=== PATIENT | male | born 1960 | race Caucasian/White ===

== ENCOUNTER 2024-11-10 15:39 | Inpatient (IN) | payer OTHER, SELFPAY ==
[2024-11-10 15:55] VITALS: BP 131/84; PULSE 120; RESP 24; TEMP 37.2; O2SAT 87
[2024-11-10 16:00] VITALS: BMI 35.2
--- NOTE | 2024-11-10 16:00 | XR_ITS ---
Examination: PA lateral chest 2 views Technique: Upright PA lateral chest 2 views Exam date and time: November 10, 2024 1638 hrs. Comparison September 02, 2023 Indications: Shortness of breath today. Findings: Diffuse significant right lung pneumonia Mild left base pneumonia Normal heart size Significant hyperexpansion Impression: Diffuse significant right lung pneumonia Mild left base pneumonia
--- NOTE | 2024-11-10 16:01 | EDRME_ITS ---
Rapid Medical Screening Exam [facility], [facility] Arrival date/time: 11/10/24 15:39 64-year-old male with a history of COPD presents to the emergency room with a chief complaint of difficulty breathing x 2 weeks that is progressively gotten worse the last 2 days. Patient states he also has a history of needing blood transfusions. I have greeted and performed a focused initial assessment of this patient. A comprehensive ED assessment and evaluation of the patient, analysis of all test results, and completion of the medical decision making process will be conducted by additional ED providers. Chief Complaint: Shortness of Breath/Dyspnea Vital signs: Vital Signs Temperature 98.9 F 11/10/24 15:55 Pulse Rate 120 H 11/10/24 15:55 Respiratory Rate 24 H 11/10/24 15:55 Blood Pressure 131/84 H 11/10/24 15:55 Pulse Oximetry (%) 87 L 11/10/24 15:55 Oxygen Delivery Method Room Air 11/10/24 15:55 Vital signs reviewed by provider: Yes
--- NOTE | 2024-11-10 16:47 | PD.EDADULT ---
ED General RME/HPI General Chief complaint: Shortness of Breath/Dyspnea Stated complaint: SHORTNESS OF BREATH Time Seen by Provider: 11/10/24 16:39 Arrival date/time: 11/10/24 15:39 CC: Cough and shortness of breath HPI ongoing for the past 2 weeks but worse in the last 2 days. Determined to have a low-grade fever of 100.7 today. Patient is awake alert oriented denies any chest pain. RME / HPI RME / HPI narrative: 11/10/24 15:39 64-year-old male with a history of COPD presents to the emergency room with a chief complaint of difficulty breathing x 2 weeks that is progressively gotten worse the last 2 days. Patient states he also has a history of needing blood transfusions. I have greeted and performed a focused initial assessment of this patient. A comprehensive ED assessment and evaluation of the patient, analysis of all test results, and completion of the medical decision making process will be conducted by additional ED providers. Related Data Allergies Allergy/AdvReac Type Severity Reaction Status Date / Time No Known Allergies Allergy Verified 11/10/24 15:41 Review of Systems Review of Systems Narrative Review of Systems: GEN: No fever, no chills, no weight loss EYES: No discharge, no visual changes, no pain HEENT: No ear pain, no congestion, no sore throat PULM: +shortness of breath, + cough, no congestion CV: No chest pain, no dyspnea on exertion, no palpitations GI: No nausea, no vomiting, no diarrhea, no pain, no constipation : No frequency, no urgency, no dysuria MUSC/SKEL: No joint pain, no back pain SKIN: No rash PSYCH: No hallucinations, no depression HEME/LYMPH: No easy bleeding or bruising tendencies NEURO: No weakness, no headache ED Exam Narrative Physical exam: [General: Thin borderline emaciated in mild discomfort but not in any acute distress Head normocephalic HEENT: Within acceptable limits Neck is supple nontender Chest equal chest rise nontender to palpation Respiratory: Tachypneic audible expiratory crackles. Mild anterior retractions. CV: Rate rhythm is regular, tachycardic, no murmurs rubs or clicks Abdomen is flat, soft nontender no masses positive bowel sounds all 4 quadrants Back: No CVA tenderness no spinous process tenderness from cervical spine thoracic and lumbar spine Skin: Intact no petechiae rash induration ulceration or crepitus Extremities: Moving all extremity against resistance cap refill less than 2 seconds neurosensory intact Neuro: Awake alert oriented x3 Glascow coma 15 no focal deficits] Course Quality Measures none Orders Category Date Time Status Bedside COVID-19 Antigen Test NOW Care 11/10/24 17:29 Active Bedside Influenza A&B Antigen Test NOW Care 11/10/24 17:29 Completed Door Patcher STAT Care 11/10/24 18:40 Active Continuous Pulse Oximetry STAT Care 11/10/24 18:40 Active EKG (ED ONLY) *Do not use* NOW Care 11/10/24 16:00 Completed Insert IV NOW Care 11/10/24 16:31 Active NPO STAT Care 11/10/24 18:40 Active Strict Intake and Output Routine Care 11/10/24 18:40 Ordered EKG (ED Only) Stat Exams 11/10/24 16:00 Ordered XR chest 2V Stat Exams 11/10/24 16:00 Completed B-Type Natriuretic Peptide Stat Lab 11/10/24 16:26 Completed Blood Culture (Lab) Stat Lab 11/10/24 17:25 Received CBC Stat Lab 11/10/24 16:26 Completed Comprehensive Metabolic Panel Stat Lab 11/10/24 16:26 Completed Drug Screen,Urine Stat Lab 11/10/24 18:30 Received Lactic Acid [Lactate (Lactic Acid)] Stat Lab 11/10/24 17:25 Results Lipase Stat Lab 11/10/24 16:26 Received Magnesium Stat Lab 11/10/24 16:26 Completed Partial Thromboplastin Time Stat Lab 11/10/24 16:26 Completed Phosphorous Stat Lab 11/10/24 16:26 Received Procalcitonin Stat Lab 11/10/24 17:25 Completed Prothrombin Time with INR Stat Lab 11/10/24 16:26 Completed Troponin I Stat Lab 11/10/24 16:26 Completed Type and Screen Stat Lab 11/10/24 16:26 Completed Urinalysis Stat Lab 11/10/24 18:30 Received Urine Culture Stat Lab 11/10/24 18:30 Received ALBUTEROL RT 0.5ml [Proventil Rt 0.5ml] Med 11/10/24 16:45 Discontinued 10 mg INH X1 ONE Sodium Chloride 0.9% 1000 ml [Ns] 1,000 ml Med 11/10/24 18:20 Active IV 999 mls/hr Sodium Chloride Rt Opal 0.9% [NS Rt Opal 0.9%] Med 11/10/24 16:45 Active 3 ml INH PRN PRN cefTRIAXone/D5w 1gm IV premix [Rocephin/D5w 1gm IV Med 11/10/24 16:46 Discontinued premix] 50 ml IV X1 Oxygen Delivery NOW RT 11/10/24 18:40 Active Vital Signs Vital signs: Vital Signs Temperature 98.9 F 11/10/24 15:55 Pulse Rate 120 H 11/10/24 15:55 Respiratory Rate 24 H 11/10/24 15:55 Blood Pressure 131/84 H 11/10/24 15:55 Pulse Oximetry (%) 87 L 11/10/24 15:55 Oxygen Delivery Method Room Air 11/10/24 15:55 [facility] Patient data External records reviewed:: [facility] previous records Clinical information provided by:: patient Social determinants that could affect healthcare access:: none Patient has the following chronic illnesses:: COPD How is presenting disease/condition affected by chronic disease/condition?: exacerbated by Evaluation data The following diagnostics were reviewed and interpreted by me:: lab results and radiology exam(s) Lab and/or radiology exams considered but not ordered:: EKG performed at 1607 shows a ventricular rate of 120 MO interval 123 QRS of 8 5 QTc of 375 is sinus tachycardia. CBC shows a leukocytosis with a stable anemia no thrombocytopenia CMP shows a sodium 129 potassium of 4.0 chloride of 97 CO2 of 20.5 BUN of 24 creatinine 1.7 glucose 132 Lactic of 2.2 with a Pro-Carlos of 1.72. X-rays interpreted by me read by radiology shows pneumonia Influenza A positive Interpretation Summary: Patient is influenza A positive however the patient does have a leukocytosis with a positive Pro-Carlos and positive lactic. I am concerned that the patient has an overlying bacterial normal pneumonia in addition to the influenza. Patient's oxygen saturations have dipped to 82 to 85% on room air the patient does use oxygen at home as needed and steady not been using it in any additionally. This time feel the patient needs to be admitted for further medical management Patient's case discussed with resident for Dr. Borja who agrees to accept the patient for admission. Medications Medications considered but not ordered:: None Medication administrations:: Medication Administration History Sodium Chloride (Ns) 1,000 mls @ 999 mls/hr IV .Q1H1M ONE Stop: 11/10/24 19:20 Sodium Chloride (Sodium Chloride Rt Opal 0.9% 3 Ml Nebu) 3 ml INH PRN PRN PRN Reason: SOLN Stop: 12/10/24 16:44 Last Admin: 11/10/24 17:02 Dose: 3 ml Documented By: ASTER Discontinued Medications Albuterol (Albuterol Rt 2.5 Mg/0.5 Ml Nebu) 10 mg INH X1 ONE Stop: 11/10/24 16:46 Last Admin: 11/10/24 17:02 Dose: 10 mg Documented By: ASTER Ceftriaxone Sodium/Dextrose (Rocephin/D5w 1gm Iv Premix) 50 mls @ 100 mls/hr IV X1 ONE Stop: 11/10/24 17:15 Last Infusion: 11/10/24 19:02 Dose: Infused Documented By: Admin: 11/10/24 17:15 Dose: 100 mls/hr Documented By: JANI None Consultations Consultation(s) initiated? (list below): No Diagnosis Differential Diagnosis ED Complaint MDM: Influenza have bacteria sepsis Most likely diagnosis given after review of the tests above:: Influenza pneumonia sepsis shortness of breath hypoxemia Admission Indicated Admission indicated?: indicated Explain why admission is indicated or not indicated:: Further medical management Admission Request Was there a request for admission?: No Disposition Plan Disposition Plan: Admit Medical Decision Making Differential Diagnosis Differential Diagnosis: Influenza have bacteria sepsis Lab Data 11/10/24 16:26 11/10/24 16:26 Labs: Lab Results 11/10/24 11/10/24 Range/Units 16:26 17:25 WBC 16.9 H (3.8-10.6) Thou/mm3 RBC 4.46 L (4.50-5.90) Miln/mm3 Hgb 8.3 L (13.5-16.0) g/dL Hct 28.8 L (41.0-53.0) % MCV 65 L (80-100) fL MCH 18.6 L (25.0-35.0) pg MCHC 28.8 L (31.0-37.0) g/dl RDW Std Deviation 39.0 (35.1-43.9) fL Plt Count 230 (140-440) Thou/mm3 Neut % (Auto) 86 H (37-80) % Lymph % (Auto) 5 L (10-50) % [place] % (Auto) 8 (0-12) % Eos % (Auto) 0 (0-10) % Baso % (Auto) 0 (0-2.5) % Neut # (Auto) 14.5 H (1.8-7.7) Thou/mm3 Lymph # (Auto) 0.9 L (1.0-4.8) Thou/mm3 [place] # (Auto) 1.3 H (0.0-0.8) Thou/mm3 Eos # (Auto) 0.0 (0.0-0.5) Thou/mm3 Baso # (Auto) 0.0 (0.0-0.2) Thou/mm3 Immature Gran # (Auto) 0.14 H (0.00-0.00) Thou/mm3 Absolute Nucleated RBC 0.00 (0.00-0.00) Thou/mm3 Immature Gran % 1 H (0-0) % Nucleated RBC % 0 (0) /100 WBC PT 11.4 (9.0-12.2) Seconds INR 1.0 (0.9-1.3) APTT 31.9 (22.0-36.0) Seconds Sodium 129 L (136-145) mMol/L Potassium 4.0 (3.4-5.1) mMol/L Chloride 97 L (98-107) mMol/L Carbon Dioxide 20.5 (20.0-31.0) mMol/L Anion Gap 12 (7-16) BUN 24 H (9-23) mg/dL Creatinine 1.7 H (0.6-1.3) mg/dL Estim Creat Clear Calc 50.0 L (>60) mL/min eGFR 44 L (60 - ) See Note BUN/Creatinine Ratio 14 (12-20) Ratio Glucose 132 H (74-106) mg/dL Calculated Osmolality 264 L (275-295) Lactic Acid 2.2 H (0.4-2.0) mMol/L Calcium 8.6 (8.3-10.6) mg/dL Corrected Calcium 8.6 (8.5-10.1) mg/dL Magnesium 1.8 (1.6-2.6) mg/dL Total Bilirubin 0.6 (0.3-1.2) mg/dL AST 18 (0-34) U/L ALT 12 (10-49) U/L Alkaline Phosphatase 101 (46-116) U/L Troponin I < 0.020 (0.0-0.045) ng/mL B-Natriuretic Peptide 33 (0-100) pg/mL Total Protein 7.4 (5.7-8.2) gm/dL Albumin 4.3 (3.4-4.8) gm/dL Globulin 3.1 (2.3-3.5) gm/dL Albumin/Globulin Ratio 1.4 (1.2-2.2) Procalcitonin 1.72 H (0.0-0.49) ng/ml Blood Type O Positive Antibody Screen NEGATIVE Blood Bank Wristband ID Yes Discharge Plan Plan Patient Disposition: HOME (Self Care) Patient condition on transfer: Stable Prescriptions/Referrals Referrals: No Primary/Family,Physician [Primary Care Provider] - In 1 week Problem List Clinical Impression: Influenza A, Hypoxemia, Shortness of breath, Pneumonia, DEON (acute kidney injury), COPD exacerbation Patient/Caregiver Discharge Instructions Print Language: Faroese Stand Alone Forms: [facility] Award Info., Patient Portal Info Letter PA/DRAWER IN Supervising Physician PA/DRAWER IN Supervising Physician: Kevin Alfaro ENP
[2024-11-10 16:49] LABS: Basophils % (Auto) 0 % (0-2.5); Eosinophils % (Auto) 0 % (0-10); Hematocrit 28.8 % (41.0-53.0); Immature Granulocytes % (Auto) 1 % (0-0); Immature Granulocytes Auto 0.14 Thou/mm3 (0.00-0.00); Lymphocytes # (Auto) 0.9 Thou/mm3 (1.0-4.8); Lymphocytes % (Auto) 5 % (10-50); Mean Corpuscular HGB Conc 28.8 g/dl (31.0-37.0); Mean Corpuscular Hemoglobin 18.6 pg (25.0-35.0); Mean Corpuscular Volume 65 fL (80-100); Monocytes # (Auto) 1.3 Thou/mm3 (0.0-0.8); Monocytes % (Auto) 8 % (0-12); Neutrophils # (Auto) 14.5 Thou/mm3 (1.8-7.7); Neutrophils % (Auto) 86 % (37-80); Nucleated Red Blood Cell % 0 /100 WBC (0); Platelet Count 230 Thou/mm3 (140-440); Red Blood Count 4.46 Miln/mm3 (4.50-5.90); White Blood Count 16.9 Thou/mm3 (3.8-10.6)
[2024-11-10 16:51] LABS: Hemoglobin 8.3 g/dL (13.5-16.0)
[2024-11-10 17:02] VITALS: PULSE 112
[2024-11-10] MEDS: ALBUTEROL RT 2.5 MG/0.5 ML NEBU 10 MG INH (17:02)
[2024-11-10] MEDS: SODIUM CHLORIDE RT SOL 0.9% 3 ML NEBU INH (17:02)
[2024-11-10 17:07] VITALS: PULSE 102; RESP 20; O2SAT 94
[2024-11-10 17:07] LABS: Alanine Aminotransferase 12 U/L (10-49); Albumin, Serum 4.3 gm/dL (3.4-4.8); Albumin/Globulin Ratio 1.4 (1.2-2.2); Alkaline Phosphatase 101 U/L (46-116); Anion Gap 12 (7-16); Aspartate Amino Transferase 18 U/L (0-34); BUN/Creatinine Ratio 14 Ratio (12-20); Bilirubin,Total 0.6 mg/dL (0.3-1.2); Blood Urea Nitrogen 24 mg/dL (9-23); Calcium 8.6 mg/dL (8.3-10.6); Calcium (Corrected) 8.6 mg/dL (8.5-10.1); Carbon Dioxide 20.5 mMol/L (20.0-31.0); Chloride 97 mMol/L (98-107); Creatinine (Component) 1.7 mg/dL (0.6-1.3); Globulin 3.1 gm/dL (2.3-3.5); Glucose 132 mg/dL (74-106); Magnesium 1.8 mg/dL (1.6-2.6); Osmolality,Calculated 264 (275-295); Sodium 129 mMol/L (136-145); Total Protein 7.4 gm/dL (5.7-8.2); Troponin I < 0.020 ng/mL (0.0-0.045); eGFR 44 See Note
[2024-11-10 17:15] VITALS: BP 124/67; PULSE 105; RESP 24; TEMP 39.2; O2SAT 99
[2024-11-10] MEDS: cefTRIAXone/D5w 1gm IV premix 50 ML IV (17:15)
[2024-11-10 17:34] LABS: Partial Thromboplastin Time 31.9 Seconds (22.0-36.0); Prothrombin Time 11.4 Seconds (9.0-12.2)
[2024-11-10 17:35] LABS: B-Type Natriuretic Peptide 33 pg/mL (0-100)
[2024-11-10 17:42] LABS: Lactate (Lactic Acid) 2.2 mMol/L (0.4-2.0)
[2024-11-10 18:08] VITALS: PULSE 108; RESP 24; O2SAT 95
[2024-11-10 18:10] LABS: Procalcitonin 1.72 ng/ml (0.0-0.49)
[2024-11-10 18:56] LABS: Collection Type, Urine Clean Catch; WBC,Urine 0 /hpf (0-5)
[2024-11-10 19:11] LABS: Bacteria,Urine Rare; Bilirubin,Urine Negative (Negative); Blood,Urine Trace (Negative); Clarity,Urine Turbid (Clear/Hazy); Color,Urine Yellow (Lt Yel-Yel); Glucose, Urine Negative (Negative); Hyaline Casts,Urine < 1 /hpf (0-1); Ketones,Urine Negative (Negative); Leukocyte Esterase,Urine Negative (Negative); Nitrite,Urine Negative (Negative); PH,Urine 5.5 (5.0-7.0); Protein,Urine 1+ (Neg - Trace); RBC,Urine 4 /hpf (0-3); Squamous Epithelial Cell,Urine < 1 /hpf (0-5)
[2024-11-10 19:17] LABS: Lipase 31 U/L (12-53); Phosphorous 2.4 mg/dL (2.4-5.1)
[2024-11-10 19:18] LABS: Amphetamine/Methamp Scrn,U Positive (Negative); Barbiturate Screen,Urine Negative (Negative); Benzodiazepines Screen,Urine Negative (Negative); Benzoylecgonine Screen, Ur Negative (Negative); Fentanyl Screen,Urine Negative (Negative); Opiate Screen,Urine Negative (Negative); THC Screen,Urine Negative (Negative)
[2024-11-10] MEDS: SODIUM CHLORIDE 0.9% 1000 ML 1,000 ML 999 ML IV (19:35)
[2024-11-10 20:20] VITALS: BP 108/47; PULSE 90; RESP 16; TEMP 38.1; O2SAT 95
[2024-11-10 20:37] LABS: Reflex Lactate? Y
--- NOTE | 2024-11-10 20:50 | ESHP_ITS ---
Documentation for date of: 11/10/24 [facility] History of Present Illness History of present illness: Dano is a 64-year-old male with past medical history of COPD (sometimes uses oxygen at home but not consistently) who comes to the ED on 11/10/2024 for an evaluation of productive cough, diaphoresis, chills, and worsening shortness of breath worse with exertion, onset 7 days ago. Patient reports that he has been feeling short of breath and has been holding off on coming to the hospital, but his condition worsened to the point that he needed to be evaluated. Says he has not taken anything for his condition to help him. Denies any recent travel or any sick contacts. Denies any chest pain, nausea, vomiting, diarrhea, headache, numbness, tingling. Also says that he has chronic anemia, and was told that his body does not produce red blood cells well, but the etiology of why he is anemic still being further investigated by his new doctor in [place]. Usually does not see his doctor consistently however. Says that he got an ultrasound of his abdomen in the past, but does not know the results. ED course: Patient arrived to the ER tachycardic, tachypneic, febrile with a temperature of 102, and was satting 85% on room air. Patient was worked up and was found to have a white count of 17, hemoglobin 8.3, sodium of 129, BUN/creatinine of 24 and 1.7 respectively, lactate 2.2, Pro-Carlos 1.72, urine drug screen showed positive for methamphetamines, patient is positive for influenza A, chest x-ray showed diffuse significant right lung pneumonia and possible left base pneumonia. Patient was given 2 L of fluids, Rocephin x 1 and albuterol breathing treatment. Patient was also put on 4 L of oxygen satting at 91 to 92%. Patient was consulted and patient was made to the floors. Past medical history: COPD Surgical history: None Allergies: No known allergies Meds: Does not take any medicines Family history: No known family history Social history: Lives in [place] or an apartment alone, says he has smoked all his life about a pack a day, says that he used meth last time 4 to 5 years ago, quit drinking alcohol in the 90s. 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 Review of Systems Review of Systems Narrative Review of Systems: Constitutional: + chills, + diaphoresis, No fever, fatigue, weakness, weight loss, HEENT: No eye pain, vision loss, ear pain, hearing loss, dysphagia, Cardiovascular: No chest pain, palpitations, edema, pain with walking Respiratory: + cough,+ shortness of breath, no wheezing GI: No NVD, abdominal pain, constipation, blood in stool, loss of appetite, heartburn Extremities: No presence of pitting edema MSK: No back pain, joint pain, joint swelling Neuro: No dizziness, numbness, weakness, headaches, seizures, tremors Psych: No anxiety, depression Exam Vital Signs Temp Pulse Resp BP Pulse Ox O2 Del Method O2 Flow Rate 100.5 F H 90 16 108/47 L 95 Nasal Cannula 3 11/10/24 20:20 11/10/24 20:20 11/10/24 20:20 11/10/24 20:20 11/10/24 20:20 11/10/24 20:20 11/10/24 20:20 Narrative Exam General: AAOx3, NAD, HEENT: Moist mucous membranes, conjunctiva clear, EOMI, possible pinpoint pupils bilat Cardiovascular: S1, S2, radial pulses +2 bilat, RRR Pulmonary: Wheezing and stridor heard in lung milan, + cough, GI: No tenderness to light or deep palpitation, no guarding, rigidity, rebound tenderness or distension Extremities: No presence of trace or pitting edema in lower extremities bilaterally, dorsalis pedis pulses +2 bilaterally Neuro: AAOx3, no focal motor or sensory deficits in the UE or LE bilat Psych: Cooperative. Results: Labs 11/10/24 16:26 11/10/24 16:26 Labs: Short CBC 11/10/24 Range/Units 16:26 WBC 16.9 H (3.8-10.6) Thou/mm3 Hgb 8.3 L (13.5-16.0) g/dL Hct 28.8 L (41.0-53.0) % Plt Count 230 (140-440) Thou/mm3 BMP 11/10/24 16:26 Sodium 129 L Potassium 4.0 Chloride 97 L Carbon Dioxide 20.5 BUN 24 H Creatinine 1.7 H Glucose 132 H Calcium 8.6 Cardiac Enzymes 11/10/24 Range/Units 16:26 Troponin I < 0.020 (0.0-0.045) ng/mL Liver Function 11/10/24 Range/Units 16:26 Total Bilirubin 0.6 (0.3-1.2) mg/dL AST 18 (0-34) U/L ALT 12 (10-49) U/L Alkaline Phosphatase 101 (46-116) U/L Albumin 4.3 (3.4-4.8) gm/dL Urine 11/10/24 Range/Units 18:30 Urine Color Yellow (Lt Yel-Yel) Urine Clarity Turbid A (Clear/Hazy) Urine pH 5.5 (5.0-7.0) Ur Specific [place] 1.020 (1.001-1.035) Urine Protein 1+ A (Neg - Trace) Urine Glucose (UA) Negative (Negative) Quality Measures Quality Measures none Medications Home Medications and Allergies Allergies Allergy/AdvReac Type Severity Reaction Status Date / Time No Known Allergies Allergy Verified 11/10/24 15:41 Visit Medications Sodium Chloride (Sodium Chloride Rt Opal 0.9% 3 Ml Nebu) 3 ml INH PRN PRN PRN Reason: SOLN Stop: 12/10/24 16:44 Last Admin: 11/10/24 17:02 Dose: 3 ml Discontinued Medications Albuterol (Albuterol Rt 2.5 Mg/0.5 Ml Nebu) 10 mg INH X1 ONE Stop: 11/10/24 16:46 Last Admin: 11/10/24 17:02 Dose: 10 mg Ceftriaxone Sodium/Dextrose (Rocephin/D5w 1gm Iv Premix) 50 mls @ 100 mls/hr IV X1 ONE Stop: 11/10/24 17:15 Last Infusion: 11/10/24 19:02 Dose: Infused Sodium Chloride (Ns) 1,000 mls @ 999 mls/hr IV .Q1H1M ONE Stop: 11/10/24 19:20 Last Admin: 11/10/24 19:35 Dose: 999 mls/hr Assessment & Plan Plan Assessment Dano is a 64-year-old male with past medical history of COPD (sometimes uses oxygen at home but not consistently) who is currently admitted for sepsis 2/2 Influenza and superimposed bacterial pneumonia. #Sepsis secondary to #Influenza A positive #Superimposed bacterial pneumonia, community-acquired Patient had been experiencing symptoms for the past 7 days and decided to get evaluated Chest x-ray shows right right lung pneumonia and possible left lower base pneumonia Patient was SIRS 4 out of 4 positive Patient had a white count of 17, and lactate of 2.2 Due to patient being hospitalized, will treat for influenza despite patient experiencing symptoms for over 7 days Will treat for community-acquired pneumonia as well S/P 2L Plan: ?Tamiflu 75 mg twice daily (11/10?) ?Rocephin and azithromycin (11/10?) ?DuoNebs every 6 hours as needed ?Trend lactate ?Legionella ?Cocci #Acute on chronic hypoxic respiratory failure secondary to #COPD exacerbation Patient likely had respiratory failure due to COPD and infection as well Patient would likely benefit from prednisone, required Patient does say he has oxygen at home, however does not use it Plan: ?Rocephin and azithromycin as above ?DuoNebs as above ?Prednisone 40 mg daily ?Oxygen saturations 88 to 92% #? DEON on CKD #Hypoosmolar hyponatremia #Lactic acidosis Patient previously seen with a creatinine of 1.6 on previous admission last year, currently creatinine is 1.7 Patient denied having any GI losses including diarrhea or vomiting Hyponatremia could be due to poor diet, however will further workup Plan: ?Avoid nephrotoxic agents ?Renally dose medicines ?Trending lactate ?Daily CMP #Chronic microcytic anemia Patient says that he is currently being evaluated for his anemia Hemoglobin ~8.0 Considering patient is anemic, hemoglobin around 8, will do SCDs for VTE prophylaxis Plan: ?Trend CBC ?Type and screen ?SCDs #Substance abuse, meth/amphetamine UDS shows meth/amphetamine Patient denies using drugs recently Plan: ?Monitor for withdrawal symptoms ?Consider referral to geriatric social worker #Health Maintenance Disposition: Med telemetry DVT prophylaxis: SCDs GI prophylaxis: None indicated at this time Diet: Regular CODE STATUS: Full Patient seen and care discussed with my attending physician, Dr. Juliano Camilo, PGY-1 Attending Provider Attestation/Addendum I have examined the patient, reviewed labs and imaging findings, discussed the case with the resident(s), and reviewed entered orders. I agree with the plan of care as outlined in this note, with these additional summaries/recommendations: 64-year-old male with past medical history of COPD (current smoker, not on home O2) presents to the ED with chief complaint of worsening shortness of breath, cough, cold symptoms. Patient noted to be influenza positive in the ER and met 4 out of 4 SIRS criteria with lactic acid of 2.2 and hypoxia requiring 4 L oxygen supplementation. Chest x-ray showed right lung pneumonia pattern with elevated Pro-Carlos concerning for superimposed bacterial pneumonia. Patient given sepsis bundle improvement in vital signs and initiated on broad-spectrum antibiotics, Tamiflu, steroids. He will be admitted for suspected secondary bacterial pneumonia and COPD exacerbation. Umang Henao MD
[2024-11-10 21:26] LABS: Lactic Acid, 3 HR 1.5 mMol/L (0.4-2.0)
[2024-11-10] MEDS: predniSONE 20 MG TABLET 40 MG PO (21:50)
[2024-11-10] MEDS: OSELTAMIVIR 75 MG CAPSULE PO (21:50)
[2024-11-10] MEDS: AZITHROMYCIN INJ 500 MG in SODIUM CHLORIDE 0.9% 250 ML 250 ML 250 MG IV (21:51)
[2024-11-10 22:02] LABS: Cardiac Risk Estimate 5.7 RATIO (4.0-6.7); Cholesterol 74 mg/dL (132-200); HDL Cholesterol 13 mg/dL (40-60); LDL Cholesterol,Calculated 46 mg/dL (0-130); Triglycerides 74 mg/dL (30-150)
[2024-11-11] VITALS (10 sets, daily range): BP systolic 113–137; BP diastolic 66–76; PULSE 64–88; RESP 17–94; TEMP 36.2–37.1; O2SAT 93–100; BMI 18.3
[2024-11-11] MEDS: ALBUTEROL/IPRATROPIUM (Duoneb) RT SOL 3 ML NEBU INH ×4 (00:24→19:27)
[2024-11-11 05:39] LABS: Basophils % (Auto) 0 % (0-2.5); Eosinophils % (Auto) 0 % (0-10); Hematocrit 27.8 % (41.0-53.0); Immature Granulocytes % (Auto) 1 % (0-0); Immature Granulocytes Auto 0.14 Thou/mm3 (0.00-0.00); Lymphocytes # (Auto) 0.5 Thou/mm3 (1.0-4.8); Lymphocytes % (Auto) 4 % (10-50); Mean Corpuscular HGB Conc 28.4 g/dl (31.0-37.0); Mean Corpuscular Hemoglobin 18.5 pg (25.0-35.0); Mean Corpuscular Volume 65 fL (80-100); Monocytes # (Auto) 0.4 Thou/mm3 (0.0-0.8); Monocytes % (Auto) 3 % (0-12); Neutrophils # (Auto) 11.7 Thou/mm3 (1.8-7.7); Neutrophils % (Auto) 92 % (37-80); Nucleated Red Blood Cell % 0 /100 WBC (0); Platelet Count 190 Thou/mm3 (140-440); RDW Standard Deviation 40.2 fL (35.1-43.9); Red Blood Count 4.26 Miln/mm3 (4.50-5.90); White Blood Count 12.7 Thou/mm3 (3.8-10.6)
[2024-11-11 05:44] LABS: Hemoglobin 7.9 g/dL (13.5-16.0)
[2024-11-11 05:50] LABS: Partial Thromboplastin Time 32.7 Seconds (22.0-36.0); Prothrombin Time 11.3 Seconds (9.0-12.2)
[2024-11-11 06:51] LABS: Alanine Aminotransferase 11 U/L (10-49); Albumin, Serum 4.1 gm/dL (3.4-4.8); Albumin/Globulin Ratio 1.4 (1.2-2.2); Alkaline Phosphatase 98 U/L (46-116); Anion Gap 8 (7-16); Aspartate Amino Transferase 13 U/L (0-34); BUN/Creatinine Ratio 16 Ratio (12-20); Bilirubin,Total 0.4 mg/dL (0.3-1.2); Blood Urea Nitrogen 23 mg/dL (9-23); Calcium 8.9 mg/dL (8.3-10.6); Calcium (Corrected) 8.9 mg/dL (8.5-10.1); Carbon Dioxide 21.9 mMol/L (20.0-31.0); Chloride 104 mMol/L (98-107); Creatinine (Component) 1.4 mg/dL (0.6-1.3); Estimated Creatinine Clearance 44.9 mL/min (>60); Glucose 157 mg/dL (74-106); Magnesium 2.1 mg/dL (1.6-2.6); Osmolality,Calculated 274 (275-295); Phosphorous 4.4 mg/dL (2.4-5.1); Potassium 4.9 mMol/L (3.4-5.1); Sodium 134 mMol/L (136-145); Total Protein 7.1 gm/dL (5.7-8.2); eGFR 56 See Note
[2024-11-11] MEDS: predniSONE 20 MG TABLET 40 MG PO (08:29)
[2024-11-11] MEDS: OSELTAMIVIR 75 MG CAPSULE PO ×2 (08:29→20:18)
[2024-11-11] MEDS: cefTRIAXone/D5w 1gm IV premix 50 ML IV (08:29)
[2024-11-11 09:45] LABS: Free T4 (Free Thyroxine) 1.36 ng/dL (0.89-1.76)
[2024-11-11] MEDS: AZITHROMYCIN 250 MG TABLET 500 MG PO (13:39)
[2024-11-11 14:44] LABS: Cocci Serology, IgM Negative (Negative)
--- NOTE | 2024-11-11 14:57 | ESPR_ITS ---
<Statement entered by Luiz Franklin MD - 11/11/24 15:48> Patient was seen and examined at the bedside. Patient is admitted overnight due to acute respiratory distress due to influenza pneumonia and possible superimposed community acquired pneumonia and underlying COPD. No acute overnight events were reported. Vital signs were unremarkable. Patient was saturating well on room air. WBC improved to 12.7. Patient was found to have a hemoglobin around 7.9 therefore further investigation including iron panel, B12 and folic acid was ordered. FOBT ordered to rule out GI bleed. Patient denied any bleeding episode. Per chart review, patient had low iron stores in the past. Kidney functions improving today. Currently we are continuing ceftriaxone and azithromycin. Will also continue Tamiflu for influenza pneumonia and breathing treatments with prednisone for COPD exacerbation. Will follow-up on the blood cultures, urine cultures, and MRSA screen pending. Cocci IgM negative. Lactic acidosis resolved. Patient does have a history of meth amphetamine use will likely closely monitor heart rate and withdrawal symptoms. Free T4 we will follow-up in the morning as TSH was 0.4. All labs and orders were reviewed. I saw and examined the patient, and I agree with current management stated by Dr Sanchez DO,PGY1. Plan of care was discussed with the attending physician and resident physician. Disclaimer: Despite multiple revisions, due to the dictation software being used, the document bellow may not be free of grammatical errors including phonetic/typographic errors. However, this does not deter from our commitment to providing health care in the patient's best interest in mind. Dr. Rigoberto MD, PGY 2 Documentation for date of: 11/11/24 Subjective Subjective Interval history: 11/11: No acute events overnight. Vital signs stable throughout night. Patient currently saturating at 98% on room air. WBC 12.7 from 16.9. Hemoglobin appears stable. Creatinine appears to be improving 1.4 from 1.7 GFR 56 from 44. Lactic acid 1.5 from 2.2 patient exam states that he feels much better, and his shortness of breath is much improved. Denies any new symptoms. Physical exam still reveals slight crackles in bilateral lower lung bases. Previous report from 09/02/2023 shows peripheral blood smear with anisopoikilocytosis-possible iron deficiency anemia. Ordered iron panel, B12, folate and fecal occult blood for evaluation of microcytic anemia. Urine and blood culture currently pending. Exam Vital Signs Temp Pulse Resp BP Pulse Ox O2 Del Method O2 Flow Rate 97.3 F 88 20 120/73 100 Nasal Cannula 2 11/11/24 12:00 11/11/24 12:45 11/11/24 12:45 11/11/24 12:00 11/11/24 12:45 11/11/24 12:00 11/11/24 12:45 Narrative Exam General: AAOx3, NAD, HEENT: Moist mucous membranes, conjunctiva clear, EOMI, possible pinpoint pupils bilat Cardiovascular: S1, S2, radial pulses +2 bilat, RRR Pulmonary: Wheezing and stridor heard in lung milan, + cough, GI: No tenderness to light or deep palpitation, no guarding, rigidity, rebound tenderness or distension Extremities: No presence of trace or pitting edema in lower extremities bilaterally, dorsalis pedis pulses +2 bilaterally Neuro: AAOx3, no focal motor or sensory deficits in the UE or LE bilat Psych: Cooperative. Objective Labs 11/11/24 05:14 11/11/24 05:14 Labs: Laboratory Results - last 24 hr 11/10/24 11/10/24 11/10/24 16:26 17:25 18:30 WBC 16.9 H RBC 4.46 L Hgb 8.3 L Hct 28.8 L MCV 65 L MCH 18.6 L MCHC 28.8 L RDW Std Deviation 39.0 Plt Count 230 Neut % (Auto) 86 H Lymph % (Auto) 5 L [place] % (Auto) 8 Eos % (Auto) 0 Baso % (Auto) 0 Neut # (Auto) 14.5 H Lymph # (Auto) 0.9 L [place] # (Auto) 1.3 H Eos # (Auto) 0.0 Baso # (Auto) 0.0 Immature Gran # (Auto) 0.14 H Absolute Nucleated RBC 0.00 Immature Gran % 1 H Nucleated RBC % 0 PT 11.4 INR 1.0 APTT 31.9 Sodium 129 L Potassium 4.0 Chloride 97 L Carbon Dioxide 20.5 Anion Gap 12 BUN 24 H Creatinine 1.7 H Estim Creat Clear Calc 50.0 L eGFR 44 L BUN/Creatinine Ratio 14 Glucose 132 H Calculated Osmolality 264 L Lactic Acid 2.2 H Calcium 8.6 Corrected Calcium 8.6 Phosphorus 2.4 Magnesium 1.8 Total Bilirubin 0.6 AST 18 ALT 12 Alkaline Phosphatase 101 Troponin I < 0.020 B-Natriuretic Peptide 33 Total Protein 7.4 Albumin 4.3 Globulin 3.1 Albumin/Globulin Ratio 1.4 Triglycerides Cholesterol LDL Cholesterol, Calc HDL Cholesterol Cholesterol/HDL Ratio Lipase 31 Procalcitonin 1.72 H TSH Free T4 Ur Collection Type Clean Catch Urine Color Yellow Urine Clarity Turbid A Urine pH 5.5 Ur Specific [place] 1.020 Urine Protein 1+ A Urine Glucose (UA) Negative Urine Ketones Negative Urine Blood Trace Urine Nitrite Negative Urine Bilirubin Negative Urine Urobilinogen (Auto) 2.0 Ur Leukocyte Esterase Negative Urine RBC 4 H Urine WBC 0 Ur Squamous Epith Cells < 1 Urine Bacteria Rare Hyaline Casts < 1 Urine Opiates Screen Negative Urine Fentanyl Screen Negative Ur Barbiturates Screen Negative U Amphetamin/Meth Scrn Positive A U Benzodiazepines Scrn Negative U Cocaine Metab Screen Negative U Marijuana (THC) Screen Negative Coccidioides IgM Ab Blood Type O Positive Antibody Screen NEGATIVE Blood Bank Wristband ID Yes 11/10/24 11/11/24 21:08 05:14 WBC 12.7 H RBC 4.26 L Hgb 7.9 L Hct 27.8 L MCV 65 L MCH 18.5 L MCHC 28.4 L RDW Std Deviation 40.2 Plt Count 190 D Neut % (Auto) 92 H Lymph % (Auto) 4 L [place] % (Auto) 3 Eos % (Auto) 0 Baso % (Auto) 0 Neut # (Auto) 11.7 H Lymph # (Auto) 0.5 L [place] # (Auto) 0.4 Eos # (Auto) 0.0 Baso # (Auto) 0.0 Immature Gran # (Auto) 0.14 H Absolute Nucleated RBC 0.00 Immature Gran % 1 H Nucleated RBC % 0 PT 11.3 INR 1.0 APTT 32.7 Sodium 134 L Potassium 4.9 D Chloride 104 Carbon Dioxide 21.9 Anion Gap 8 BUN 23 Creatinine 1.4 H Estim Creat Clear Calc 44.9 L eGFR 56 L BUN/Creatinine Ratio 16 Glucose 157 H Calculated Osmolality 274 L Lactic Acid 1.5 Calcium 8.9 Corrected Calcium 8.9 Phosphorus 4.4 Magnesium 2.1 Total Bilirubin 0.4 AST 13 ALT 11 Alkaline Phosphatase 98 Troponin I B-Natriuretic Peptide Total Protein 7.1 Albumin 4.1 Globulin 3.0 Albumin/Globulin Ratio 1.4 Triglycerides 74 Cholesterol 74 L LDL Cholesterol, Calc 46 HDL Cholesterol 13 L Cholesterol/HDL Ratio 5.7 Lipase Procalcitonin TSH 0.40 L Free T4 1.36 Ur Collection Type Urine Color Urine Clarity Urine pH Ur Specific [place] Urine Protein Urine Glucose (UA) Urine Ketones Urine Blood Urine Nitrite Urine Bilirubin Urine Urobilinogen (Auto) Ur Leukocyte Esterase Urine RBC Urine WBC Ur Squamous Epith Cells Urine Bacteria Hyaline Casts Urine Opiates Screen Urine Fentanyl Screen Ur Barbiturates Screen U Amphetamin/Meth Scrn U Benzodiazepines Scrn U Cocaine Metab Screen U Marijuana (THC) Screen Coccidioides IgM Ab Negative Blood Type Antibody Screen Blood Bank Wristband ID Quality Measures Quality Measures none Assessment & Plan Assessment Current Active Medications: Generic Name Dose Route Start Last Admin Trade Name Freq PRN Reason Stop Dose Admin Acetaminophen 650 mg 11/10/24 20:30 Acetaminophen 325 Mg Tablet PO 12/10/24 20:29 Q6H PRN Fever >101.5 or pain 1-3 Albuterol/Ipratropium 3 ml 11/11/24 01:00 11/11/24 12:44 Albuterol/Ipratropium (Duoneb) Rt Opal 3 Ml Nebu INH 12/11/24 00:59 3 ml Q6HRRT RUIZ Administration Azithromycin 500 mg 11/11/24 10:55 11/11/24 13:39 Azithromycin 250 Mg Tablet PO 11/14/24 10:54 500 mg QDAY RUIZ Administration Guaifenesin 200 mg 11/11/24 09:03 Guaifenesin Syrup 200 Mg/10 Ml Udc PO 12/11/24 09:02 QID PRN COUGH OR CONGESTION Protocol Ceftriaxone Sodium/Dextrose 50 mls @ 100 mls/hr 11/11/24 09:00 11/11/24 08:29 Rocephin/D5w 1gm Iv Premix IV 11/18/24 08:59 100 mls/hr QDAY RUIZ Administration Ondansetron HCl 4 mg 11/10/24 20:34 Ondansetron Inj 2 Mg/Ml Inj 2 Ml IV 12/10/24 20:33 Q6H PRN NAUSEA OR VOMITING Protocol Oseltamivir Phosphate 75 mg 11/10/24 21:00 11/11/24 08:29 Oseltamivir 75 Mg Capsule PO 11/15/24 20:59 75 mg BID RUIZ Administration Prednisone 40 mg 11/10/24 21:00 11/11/24 08:29 Prednisone 20 Mg Tablet PO 12/10/24 20:59 40 mg QDAY RUIZ Administration Sodium Chloride 3 ml 11/10/24 16:45 11/10/24 17:02 Sodium Chloride Rt Opal 0.9% 3 Ml Nebu INH 12/10/24 16:44 3 ml PRN PRN Administration SOLN Plan Dano is a 64-year-old male with past medical history of COPD (sometimes uses oxygen at home but not consistently) who is currently admitted for sepsis 2/2 Influenza and superimposed bacterial pneumonia. #Sepsis secondary to #Influenza A positive #Superimposed bacterial pneumonia, community-acquired Patient had been experiencing symptoms for the past 7 days and decided to get evaluated Chest x-ray shows right right lung pneumonia and possible left lower base pneumonia Patient was SIRS 4 out of 4 positive Patient had a white count of 17, and lactate of 2.2 Due to patient being hospitalized, will treat for influenza despite patient experiencing symptoms for over 7 days Will treat for community-acquired pneumonia as well S/P 2L Plan: ?Tamiflu 75 mg twice daily for 5 days (11/10?) ?Rocephin and azithromycin (11/10?) ?DuoNebs every 6 hours as needed ?Trend lactate ?Legionella pending ?Cocci pending #Acute on chronic hypoxic respiratory failure secondary to #COPD exacerbation Patient likely had respiratory failure due to COPD and infection as well Patient would likely benefit from prednisone, required Patient does say he has oxygen at home, however does not use it Plan: ?Rocephin and azithromycin as above ?DuoNebs as above ?Prednisone 40 mg daily ?Oxygen saturations 88 to 92% #DEON on CKD- resolving #Hypoosmolar hyponatremia- resolving #Lactic acidosis-resolving Patient previously seen with a creatinine of 1.6 on previous admission last year, currently creatinine is 1.7 Patient denied having any GI losses including diarrhea or vomiting Hyponatremia could be due to poor diet, however will further workup 11/11: Creatinine this a.m. 1.4. Lactic acid 1.5 this a.m. from 2.2. Sodium 134 Plan: ?Avoid nephrotoxic agents ?Renally dose medicines ?Trending lactate ?Daily CMP #Chronic microcytic anemia #Possible Iron Deficiency Anemia Patient says that he is currently being evaluated for his anemia Hemoglobin ~8.0 Considering patient is anemic, hemoglobin around 8, will do SCDs for VTE prophylaxis Previous report from 09/02/2023 shows peripheral blood smear with anisopoikilocytosis-possible iron deficiency anemia. Plan: ?Trend CBC ?Type and screen -Ordered iron panel, B12, folate and fecal occult blood for evaluation of microcytic anemia-will follow-up results. #Substance abuse, meth/amphetamine UDS shows meth/amphetamine Patient denies using drugs recently Plan: ?Monitor for withdrawal symptoms ?Consider referral to clinical social work therapist #Health Maintenance Disposition: Med telemetry DVT prophylaxis: SCDs GI prophylaxis: None indicated at this time Diet: Regular CODE STATUS: Full Patient seen and care discussed with my attending physician, Dr. Ascencion De La Vega D.O. PGY1 Attending Provider Attestation/Addendum I attest that I was physically present for the evaluation, physical examination, lab and imaging review of the patient with the residents. I discussed the case with the residents and agree with the findings and plans of care as documented above. Patient is overnight admission for sepsis secondary to influenza with superimposed bacterial pneumonia, acute on chronic hypoxic respiratory failure and DEON on CKD. At bedside, patient appears comfortable, saturating well on room air. Denies any new complaints. When asked about his anemia, stated that he was told he has anemia at [facility] but was never worked up for the cause. We will obtain occult blood, iron panel, B12, folate and peripheral smear. We will also monitor closely for hemoglobin level. Continues to be on antibiotics, Tamiflu and steroid. Pending blood and urine cultures. Kidney function noted to be improving compared to yesterday Jad Vegas MD
--- NOTE | 2024-11-11 20:00 | PC.NURSE ---
Instructed pt to call if pt have a BM for occult blood test, pt verbalizes understanding.
[2024-11-11] MEDS: guaiFENesin SYRUP 200 MG/10 ML UDC PO (20:20)
--- NOTE | 2024-11-11 20:20 | PC.NURSE ---
Pt C/O of cough, will admin cough meds as ordered.
[2024-11-12] VITALS (7 sets, daily range): BP systolic 119–150; BP diastolic 67–82; PULSE 64–86; RESP 13–98; TEMP 36.2–36.6; O2SAT 92–100
[2024-11-12] MEDS: ALBUTEROL/IPRATROPIUM (Duoneb) RT SOL 3 ML NEBU INH ×3 (01:00→11:49)
[2024-11-12 06:23] LABS: Basophils % (Auto) 0 % (0-2.5); Eosinophils % (Auto) 0 % (0-10); Hematocrit 27.4 % (41.0-53.0); Immature Granulocytes % (Auto) 2 % (0-0); Immature Granulocytes Auto 0.39 Thou/mm3 (0.00-0.00); Lymphocytes % (Auto) 6 % (10-50); Mean Corpuscular HGB Conc 28.5 g/dl (31.0-37.0); Mean Corpuscular Hemoglobin 18.8 pg (25.0-35.0); Mean Corpuscular Volume 66 fL (80-100); Monocytes # (Auto) 0.7 Thou/mm3 (0.0-0.8); Monocytes % (Auto) 4 % (0-12); Neutrophils % (Auto) 88 % (37-80); Nucleated Red Blood Cell % 0 /100 WBC (0); Platelet Count 245 Thou/mm3 (140-440); RDW Standard Deviation 40.7 fL (35.1-43.9); Red Blood Count 4.14 Miln/mm3 (4.50-5.90); White Blood Count 17.1 Thou/mm3 (3.8-10.6)
[2024-11-12 06:24] LABS: Hemoglobin 7.8 g/dL (13.5-16.0)
[2024-11-12 06:37] LABS: Prothrombin Time 10.7 Seconds (9.0-12.2)
[2024-11-12 06:43] LABS: Alanine Aminotransferase 13 U/L (10-49); Albumin, Serum 4.2 gm/dL (3.4-4.8); Albumin/Globulin Ratio 1.4 (1.2-2.2); Alkaline Phosphatase 94 U/L (46-116); Anion Gap 11 (7-16); Aspartate Amino Transferase 21 U/L (0-34); BUN/Creatinine Ratio 31 Ratio (12-20); Bilirubin,Total 0.2 mg/dL (0.3-1.2); Blood Urea Nitrogen 37 mg/dL (9-23); Calcium 9.4 mg/dL (8.3-10.6); Calcium (Corrected) 9.4 mg/dL (8.5-10.1); Carbon Dioxide 21.7 mMol/L (20.0-31.0); Chloride 105 mMol/L (98-107); Creatinine (Component) 1.2 mg/dL (0.6-1.3); Estimated Creatinine Clearance 52.4 mL/min (>60); Glucose 131 mg/dL (74-106); Osmolality,Calculated 286 (275-295); Phosphorous 3.3 mg/dL (2.4-5.1); Potassium 4.4 mMol/L (3.4-5.1); Sodium 138 mMol/L (136-145); Total Protein 7.2 gm/dL (5.7-8.2); eGFR > 60 See Note
[2024-11-12 06:44] LABS: Iron 15 mcg/dL (65-175); Percent Iron Saturation 4 % (20-55); Total Iron Binding Capacity 307 mcg/dL (250-425); Unsaturated Iron Binding 292 (225-295)
[2024-11-12] MEDS: AZITHROMYCIN 250 MG TABLET 500 MG PO (09:33)
[2024-11-12] MEDS: predniSONE 20 MG TABLET 40 MG PO (09:33)
[2024-11-12] MEDS: OSELTAMIVIR 75 MG CAPSULE PO (09:34)
[2024-11-12] MEDS: cefTRIAXone/D5w 1gm IV premix 50 ML IV (09:35)
--- NOTE | 2024-11-12 12:12 | PC.SS ---
This is is 64-year-old, , single male who presented to the ED due to suffering from shortness of breath. Patient appeared alert and oriented to self, place and situation. Patient reported that he resides alone at home. Patient verified his address: [address] [place] [address], [address] [place] [address]. Patient reported being independent with all ALDS, no DME use; however, he does have a FWW. Patient assigned his brother, Francisco as his emergency contact. Patient's PCP is a physician at the [facility]. When medically clear, patient will return home, and will need transportation. Discharge plan: home, will need transportation to return home. Next of kin: Francisco David, brother.
--- NOTE | 2024-11-12 12:31 | PC.NURSE ---
PATIENT HAS DISCHARGE ORDERS AWAITING UBER FOR TRANSPOT SET UP AT 1400
--- NOTE | 2024-11-12 13:59 | ESDS_ITS ---
<Statement entered by Jad Vegas MD - 11/12/24 14:42> I attest that I was physically present for the evaluation, physical examination, lab and imaging review of the patient with the residents. I discussed the case with the residents and agree with the findings and plans of care as documented above. At bedside today, patient states she is feeling well and does not have any new complaints. Saturating well on room air. Denies any shortness of breath but continues to have some cough. Patient deemed stable for discharge on oral antibiotics, oseltamavir. Noted to be anemic with low iron, advised to take iron tablets after completion of antibiotics. Patient also advised to follow-up with his PCP, recommended to have further workup for his anemia. Jad Vegas MD Planned Discharge Date 11/12/24 DS: Providers Provider Date of admission: 11/10/24 20:30 Primary care physician: Physician Lidya Primary/Family Admitting Provider: Umang Henao MD Attending Provider on Admission: Umang Henao MD Consults: 11/11/24 00:17 Health [facility]ity Referral - Knowledge Deficit Routine Comment: Positive screening for knowledge deficit needs. [facility]ity Referral - Nutrition Routine Comment: Positive screening for nutrition needs. Health [facility]ity Referral - Transportation Routine Comment: Positive screening for transportation needs. Attending Provider on DC: Jad Vegas MD Discharging Provider: Srikanth Nava MD DS: Diagnosis Problem List Completed Was Problem List Reviewed/Reconciled?: Yes Hospital Course Hospital Course Hospital course: 64-year-old male with past medical history of COPD (sometimes uses oxygen at home but not consistently) presented to the ED on 11/10/2024 for an evaluation of productive cough, diaphoresis, chills, and worsening shortness of breath worse with exertion, onset 7 days ago. Patient reported that he has been feeling short of breath and has been holding off on coming to the hospital, but his condition worsened to the point that he needed to be evaluated. Patient arrived to the ER tachycardic, tachypneic, febrile with a temperature of 102, and was satting 85% on room air. Patient was worked up and was found to have a white count of 17, hemoglobin 8.3, sodium of 129, BUN/creatinine of 24 and 1.7 respectively, lactate 2.2, Pro-Carlos 1.72, urine drug screen showed positive for methamphetamines, patient is positive for influenza A, chest x-ray showed diffuse significant right lung pneumonia and possible left base pneumonia. Patient was given 2 L of fluids, Rocephin x 1 and albuterol breathing treatment. Patient was also put on 4 L of oxygen satting at 91 to 92%. Patient was consulted and patient was made to the floors. Patient found to be positive for influenza A. Patient treated on floors with Tamiflu, azithromycin, Rocephin, DuoNebs, and prednisone. Patient showed significant improvement, sat 92% on room air, denies chest pain, shortness of breath, cough. Labs showed iron deficiency anemia, patient reports he has been prescribed iron supplements for at home use. Patient medically cleared and stable for discharge. Discharge plan: Continue taking Tamiflu 75 mg twice daily for total of 5 days, ending 11/15/24 Continue taking azithromycin 500mg once daily for total of 5 days, ending 11/16/24. You have been started on Augmentin 875mg twice daily, ending 11/18/24 You have been given an iron supplement, please start taking starting 11/19/24 Follow up with PCP in 1-2 weeks. Please have a discussion with your PCP regarding workup for anemaia. Return to ED if symptoms worsen, including fevers or shortness of breath. Diagnoses: #Sepsis secondary to #Influenza A positive #Superimposed bacterial pneumonia, community-acquired #Acute on chronic hypoxic respiratory failure secondary to #COPD exacerbation #DEON on CKD- resolving #Hypoosmolar hyponatremia- resolving #Lactic acidosis-resolving #Chronic microcytic anemia #Possible Iron Deficiency Anemia #Substance abuse, meth/amphetamine Plan of care discussed with senior resident Dr. Franks PGY-[address] Vgeas. Srikanth Nava MD PGY-1 Time Spent with Patient Time attestation: Total time spent providing and/or coordinating discharge services: Exam Vital Signs Temp Pulse Resp BP Pulse Ox O2 Del Method O2 Flow Rate 97.8 F 81 16 119/68 97 Room Air 2 11/12/24 12:00 11/12/24 12:00 11/12/24 12:00 11/12/24 12:00 11/12/24 12:00 11/12/24 12:00 11/12/24 07:01 Narrative Exam General: AAOx3, NAD, HEENT: Moist mucous membranes, conjunctiva clear, EOMI, PERRLA Cardiovascular: S1, S2, radial pulses +2 bilat, RRR Pulmonary: Mild wheezing in all lung milan., GI: No tenderness to light or deep palpitation, no guarding, rigidity, rebound tenderness or distension Extremities: No presence of trace or pitting edema in lower extremities bilaterally, dorsalis pedis pulses +2 bilaterally Neuro: AAOx3, no focal motor or sensory deficits in the UE or LE bilat Psych: Cooperative. Discharge Plan Plan Patient Disposition: HOME (Self Care) Patient condition on transfer: Stable Care Plan Goals: Continue taking Tamiflu 75 mg twice daily for total of 5 days, ending 11/15/24 Continue taking azithromycin 500mg once daily for total of 5 days, ending 11/16/24. You have been started on Augmentin 875mg twice daily, ending 11/18/24 You have been given an iron supplement, please start taking starting 11/19/24 Follow up with PCP in 1-2 weeks. Please have a discussion with your PCP regarding workup for anemaia. Return to ED if symptoms worsen, including fevers or shortness of breath. Prescriptions/Referrals Prescriptions/Med Rec: New azithromycin 500 mg tablet See Rx Instructions .ROUTE .COMPLEX Qty: 3 0RF Rx Instructions: For 500 mg dose pack: take 500 mg once daily for 3 days oseltamivir [Tamiflu] 75 mg capsule 75 mg PO BID 5 Days Qty: 10 0RF amoxicillin-pot clavulanate 875-125 mg tablet 1 tab PO Q12H Qty: 12 0RF Referrals: No Primary/Family,Physician [Primary Care Provider] - Patient/Caregiver Discharge Instructions Discharge Activity: resume usual activities Education Materials: COPD: Wheezing and Chest Tightness, COVID-19 and the Flu What's ..., Acute Kidney Failure Dc, The Flu (Influenza) Print Language: Kiswahili Stand Alone Forms: [facility] Award Info., Patient Portal Info Letter Discharge Order Discharge Orders: Discharge (Routine); Ordered 11/12/24 Ordered By: Srikanth Nava Quality Discharge Quality Measures VTE prophylaxis
[2024-11-13 02:08] LABS: Folate 6.59 ng/mL (>5.38); Vitamin B12 484 pg/mL (211-911)
[2024-11-13 13:54] LABS: Cocci Serology, IgG Negative (Negative)
[2024-11-16 06:29] LABS: Legionella Ag, EIA, Urine* NOT DETECTED
== END 2024-11-12 13:52 | disposition home or self-care (01) | DRG 871 ==
LOC: SERX 19:14 → SERHOLD 21:24 → S3SX 23:51
PROVIDERS: Nurse Practitioner Family; Registered Nurse General Practice; Admitting Provider Student in an Organized Health Care Education/Training Program; Emergency Provider Emergency Medicine; Visit Provider Student in an Organized Health Care Education/Training Program
DX: A41.89 Other specified sepsis (principal); J10.08 Influenza due to other identified influenza virus with other specified pneumonia; J15.9 Unspecified bacterial pneumonia; J96.21 Acute and chronic respiratory failure with hypoxia; J44.1 Chronic obstructive pulmonary disease with (acute) exacerbation; J44.0 Chronic obstructive pulmonary disease with (acute) lower respiratory infection; N17.9 Acute kidney failure, unspecified; E87.1 Hypo-osmolality and hyponatremia; D50.9 Iron deficiency anemia, unspecified; N18.9 Chronic kidney disease, unspecified; E87.20 Acidosis, unspecified; F15.10 Other stimulant abuse, uncomplicated; F17.210 Nicotine dependence, cigarettes, uncomplicated
CPT/HCPCS: 36415; 71046; 80053; 80061; 80307; 81001; 82607; 82746; 83540; 83550; 83605; 83690; 83735; 83880; 84100; 84145; 84439; 84443; 84484; 85025; 85610; 85730; 86331; 86635; 86850; 86900; 86901; 87040; 87081; 87086; 87205; 87400; 87449; 87811; 93005; 93225; 94640; 94644; 94664; 96365; 96366; 99285; A9270; J0456; J0696; J7030; J7050; J7512

== ENCOUNTER 2025-04-16 21:58 | Emergency (ER) | payer OTHER, MEDICAID, SELFPAY ==
[2025-04-16 23:18] VITALS: BP 132/77; PULSE 97; RESP 17; TEMP 36.8; O2SAT 99
--- NOTE | 2025-04-17 00:25 | PD.EDURI ---
Upper Respiratory Inf. RME/HPI General Chief Complaint: Flu Like Symptoms Stated Complaint: COUGHING Time Seen by Provider: 04/17/25 00:09 Arrival date/time: 04/16/25 21:58 RME / HPI RME / HPI Narrative: 64-year-old male presents to the ED with a complaint of cough, body aches, sore throat and yellow to green sputum. He said the symptoms for the past 4 weeks. Symptoms are similar to when he was diagnosed with pneumonia approximately 2 months ago. Related Data Previous Rx's ?Medication ?Instructions ?Recorded amoxicillin 875 mg-potassium 1 tab PO Q12H #12 tabs 11/12/24 clavulanate 125 mg tablet azithromycin 500 mg tablet See Rx Instructions PO .COMPLEX #3 11/12/24 tabs albuterol sulfate 90 mcg/actuation 2 puff inhalation Q4H PRN 04/17/25 aerosol inhaler shortness of breath or wheezing #8.5 grams oseltamivir 75 mg capsule (Tamiflu) 75 mg PO BID 5 days #10 caps 04/17/25 Allergies Allergy/AdvReac Type Severity Reaction Status Date / Time No Known Allergies Allergy Verified 11/10/24 15:41 Review of Systems Review of Systems Systems Reviewed: All systems reviewed, normal except as documented Past Medical History Past Medical History NEUROLOGIC: Negative Neurological Disorders CARDIAC: Negative Cardiac Disorders or Congestive Heart Failure RESPIRATORY: Negative Chronic Obstructive Pulmonary Disease (COPD) GASTROINTESTINAL: Negative Gastrointestinal Disorders GENITOURINARY: Negative Genitourinary Disorders or Renal Disease MUSCULOSKELETAL: Negative Musculoskeletal Disorders ENDOCRINE: Negative Endocrine Disorders, Diabetes Mellitus Type 1 or Diabetes Mellitus Type 2 HEMATOLOGIC: Negative Blood Disorders OTHER HISTORY: Negative Autoimmune Disease Family History FAMILY HISTORY: Positive Family Respiratory Disorders (FATHER HAS EMPHYSEMA) and Family Cardiac Disorders (MOTHER HAD STROKES) Surgical History SURGICAL: Negative Endocrine Surgery, Abdominal Surgery or Nephrectomy Social History SMOKING STATUS: Current every day smoker ED Exam Narrative Physical exam: 64-year-old male, thin and cachectic with significant kyphosis, no acute respiratory distress noted. Vital signs blood pressure 132/77, pulse 97, respirations 17 nonlabored, temp 98.2, O2 sat 99% on room air. Lungs are diminished at the bases, no wheezing or rhonchi is noted. Regular rate and rhythm. Abdomen is soft and nontender. Course Course Course Narrative: 64-year-old male presents to the ED with a complaint of cough, body aches, sore throat and yellow to green sputum. He said the symptoms for the past 4 weeks. Symptoms are similar to when he was diagnosed with pneumonia approximately 2 months ago. 64-year-old male, thin and cachectic with significant kyphosis, no acute respiratory distress noted. Vital signs blood pressure 132/77, pulse 97, respirations 17 nonlabored, temp 98.2, O2 sat 99% on room air. Lungs are diminished at the bases, no wheezing or rhonchi is noted. Regular rate and rhythm. Abdomen is soft and nontender. COVID swab is negative, influenza A is positive, and influenza B is negative. Chest x-ray obtained which reveals possible left lower lobe mass. Chest CT without contrast was ordered and results are currently pending. Orders Category Date Time Status Bedside COVID-19 Antigen Test NOW Care 04/17/25 00:26 Active Bedside Influenza A&B Antigen Test NOW Care 04/17/25 00:[address] chest wo con Stat Exams 04/17/25 02:15 Taken XR chest 2V Stat Exams 04/17/25 00:26 Taken Vital Signs Vital signs: Vital Signs Temperature 98.2 F 04/16/25 23:18 Pulse Rate 97 04/16/25 23:18 Respiratory Rate 17 04/16/25 23:18 Blood Pressure 132/77 H 04/16/25 23:18 Pulse Oximetry (%) 99 04/16/25 23:18 Oxygen Delivery Method Room Air 04/16/25 23:18 Upper Respiratory Infection MDM Narrative MDM Narrative:: COVID, influenza A/B-. Discharge Plan Plan Patient Disposition: HOME (Self Care) Discharge Disposition comment: Stable Prescriptions/Referrals Prescriptions/Med Rec: New oseltamivir [Tamiflu] 75 mg capsule 75 mg PO BID 5 Days Qty: 10 0RF albuterol sulfate 90 mcg/actuation HFA aerosol inhaler 2 puff inhalation Q4H PRN (Reason: shortness of breath or wheezing) Qty: 8.5 0RF No Action azithromycin 500 mg tablet See Rx Instructions .ROUTE .COMPLEX Qty: 3 0RF Rx Instructions: For 500 mg dose pack: take 500 mg once daily for 3 days amoxicillin-pot clavulanate 875-125 mg tablet 1 tab PO Q12H Qty: 12 0RF Referrals: No Primary/Family,Physician [Primary Care Provider] - In 1 week Problem List Clinical Impression: Influenza A Patient/Caregiver Discharge Instructions Education Materials: ED Influenza (Adult) Additional Instructions: You have multiple pulmonary nodules on your CT scan. The radiologist recommends a repeat CT scan in 12 months. Take the antibiotics as prescribed and complete the course even though you may be feeling better Follow-up with your primary care physician in 24 to 48 hours. Your primary care will need to make sure and follow-up with the CT scan. Return to the ED for any new or worsening symptoms. Print Language: Armenian Stand Alone Forms: [employer] Award Info., Patient Portal Info Letter PA/TERRITORY MANAGER Supervising Physician PA/TERRITORY MANAGER Supervising Physician: Dr. Schroeder
--- NOTE | 2025-04-17 00:26 | XR_ITS ---
Examination: PA and lateral chest 2 views TECHNIQUE: Upright PA and lateral chest 2 views Dated 0036 hours INDICATIONS: Coughing body aches 2 weeks FINDINGS: Bibasilar pneumonia COPD with significant hyperexpansion Normal heart size IMPRESSION: COPD Significant bibasilar pneumonia
--- NOTE | 2025-04-17 02:15 | XR_ITS ---
Examination: CT chest, without intravenous contrast. Sagittal and coronal 2-D reconstructions. Exam date and time: April 17, 2025 at 0327 hours INDICATIONS: Coughing congestion today CTDI:vol (mGy) 6.76 DLP: (mGycm) 256 Technique: Multiple 3.0 mm axial sections of the chest to been obtained. Bone and lung density settings are obtained. Sagittal and coronal 2-D reconstructions have been obtained. Low dose protocols were performed. One or more of the following dose reduction techniques were used; automated exposure control, adjustment of the mA and/or KV according to patient size, use of iterative reconstruction technique. Findings: COPD with multiple areas of air space destruction Thoracic aortic calcification no aneurysmal dilatation Pulmonary artery segments are not enlarged Bibasilar opacity most consistent with pneumonia Multiple subcentimeter pulmonary nodules likely infectious in etiology No visualized liver and splenic lesion Kidneys partially visualized no hydronephrosis IMPRESSION: COPD Significant bibasilar pneumonia Likely bilateral infectious pulmonary nodules but clinical correlation is advised and 3-6 month follow-up CT chest without contrast recommended
--- NOTE | 2025-04-17 05:38 | PRELIM_ITS ---
CT scan of the chest without intravenous contrast (axial sections with sagittal and coronal reformats) April 17, 2025 0327 hours Clinical History: LEFT LOWER LOBE ?MASS Comparison: No prior study is available for comparison. Findings: There are multiple confluent air space opacities in the lower lobes bilaterally associated with interlobular septal thickening. Multiple centrilobular nodules are noted in the lower lobes bilaterally. Mucoid plugging in bilateral lower lobe segmental bronchi is noted. Two solid pulmonary nodules are noted in the right middle lobe measuring 5.5 mm and 2.2 mm (image 109 and 111, series 2), respectively. Perifissural and subpleural nodules are noted in the right lower lobe measuring 4.5mm and 4.7mm (image 256 and 262, series 8), respectively. Additional subpleural solid nodule is noted in the left lower lobe measuring 4.5 mm (image 123, series 2). Centrilobular and paraseptal emphysematous changes are noted in the upper lobes bilaterally. Trace bilateral pleural effusions are noted with dependent atelectasis. No evidence of pneumothorax. The mediastinum demonstrates no evidence of mass or lymphadenopathy. The thoracic aorta is unremarkable. There is no pericardial effusion. Mild degenerative changes are identified in the spine. No suspicious osseous lesion is identified. A 2cm simple right renal cyst is noted. The other visualized upper abdominal viscera are unremarkable on this noncontrast study. Impression: Bilateral lower lobe air space opacities with interlobular septal thickening more likely represent pneumonic infiltrates, could be due to aspiration. The possibility of neoplastic process is less likely, however, cannot be entirely excluded. Recommend clinical correlation, antibiotic therapy and follow-up at 4 weeks. Pulmonary nodules in both lungs as described above. In high-risk patient recommend follow-up at 12 month. Other findings as described above. Report Electronically Signed By: Philip Barton 04/17/2025 5:37:25 AM [EST]
[2025-04-17 07:03] VITALS: RESP 16
== END 2025-04-17 07:04 | disposition home or self-care (01) ==
PROVIDERS: Emergency Provider Emergency Medicine
DX: J10.1 Influenza due to other identified influenza virus with other respiratory manifestations (principal); F17.210 Nicotine dependence, cigarettes, uncomplicated
CPT/HCPCS: 71046; 71250; 87400; 87811; 99284